=== PATIENT | female | born 1995 | race Caucasian/White ===

== ENCOUNTER 2019-01-20 13:01 | Emergency (ER) | payer SELFPAY ==
[2019-01-20 13:15] VITALS: BP 116/66
--- NOTE | 2019-01-20 14:20 | ER Document Report ---
ED Medical Screen (RME) - General Chief Complaint: Abscess Stated Complaint: ABSCESS Time Seen by Provider: 01/20/19 14:12 Mode of Arrival: Ambulatory Information source: Patient TRAVEL OUTSIDE OF THE [place] IN LAST 30 DAYS: No - HPI Patient complains to provider of: rash Context: 23 yr old female pt here for concern of a possible abscess vs skin infection vs rash to her right inguinal crease region x several days. was recently on flagyl for bv x 7d, and completed this and states area decreased in pain and size however hasn't fully gone away so she came in for more abx. 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 pt denies concerns for stds and doesn't want any further prophylactic tx or std testing. no drainage, bleeding, redness, or fever. no changes in neurologic. no recent abx or steroids. no hx of diabetes or asthma. pt able to walk. no surgeries on this area. no hx of hernias. denies . no trauma or injury. denies injecting into this area. no uti or vaginal complaints or concerns for stds and doesn't want a pelvic. no abd pain. no other complaints at this time. 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 - Past Medical History Cardiac Medical History: Reports: Other - prior hx of open heart surgery secondary the endocarditis Other: 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 and also 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 per pt Endocrine Medical History: Reports: None Renal/ Medical History: Denies: Hx Peritoneal Dialysis Past Surgical History: Reports: Hx Cardiac Surgery - open heart surgery for endocarditis and valvular veg 2* to IV drug abuse - Immunizations Immunizations up to date: Yes Hx Diphtheria, Pertussis, Tetanus Vaccination: Yes Review of Systems - Review of Systems -: Yes All other systems reviewed and negative - to include 10 systems unless mentioned in the hpi Physical Exam - Vital signs Vitals: Temp Pulse Resp BP Pulse Ox 98.3 F 65 18 116/66 98 01/20/19 13:12 01/20/19 13:12 01/20/19 13:12 01/20/19 13:12 01/20/19 13:12 Interpretation: Normal Notes: >>>> PHYSICAL_EXAM: GENERAL_APPEARANCE: well_nourished, alert, cooperative, no_acute_distress, no_obvious_discomfort. Pleasant, young female, smiling, speaking in full sentences, in no sign of pain or resp distress, easily sitting up, no one is with her VITALS: reviewed, see vital signs table. HEAD: normocephalic, atraumatic. no pineda signs. no raccoon eyes. EYES: PERRL, EOMI, (-)scleral icterus. NOSE: no_nasal_discharge. MOUTH: (-)decreased moisture. THROAT: no_tonsilar_inflammation/hypertrophy/exudate NECK: supple, no_neck_tenderness, full rom. full strength. no meningeal signs. BACK: no midline_back_tenderness. no step offs or deformities CHEST_WALL: no_chest_tenderness. LUNGS: no_wheezing, (-)accessory muscle use, good air exchange bilateral. HEART: normal_rate, normal_rhythm, ABDOMEN: normal_BS, soft, abdomen-diffuse, non-tender, (-)guarding, (- )rebound, no distension or peritoneal signs. neg murphys. neg mcburneys. no cva tenderness. PELVIC: internal exam deferred, no grossly visible external abnormality other than in the right upper medial leg/groin crease just distal to the inguinal canal there is a small 1cm area of circular erythema that appears like mild cellulitis vs a resolving abscess. area minimally ttp. no drainage, streaking, induration, fluctuation, or bleeding. not tinea or hive like. does eugene. no central clearing or target lesion. no drainable fluid collection. RECTAL: deferred EXTREMITIES: strength 5/5 in all_extremities, good pulses in all_extremities, no_edema, no_swelling\tenderness. full rom. normal gait. good hand adult neurologist. brisk cap refill. SKIN: warm, dry, good_color, no_rash. no grossly visible overlying skin changes to suggest trauma NEURO: motor_intact, sensory_intact. MENTAL_STATUS: normal_affect, speech_clear, oriented_X_3, responds_appropriately to questions. Course - Re-evaluation Re-evalutation: pt here for a likely resolving inguinal/groin infection/cellulitis. was on flagyl for bv recently and states completed a week of this and it decreased the size of the area. no drainage; however, it hasn't resolved so she came in. there is no drainable fluid collection today. she refused pelvic exam. has no concerns for stds. advised sx care. will dc with doxy. Follow-up with PCP/obgyn/health dept in 1 to 2 days. Return for any worsening symptoms. take the medication as prescribed. Tylenol or ibuprofen as needed for any pain or her methadone. Keep area clean and dry. Follow-up with health department or [facility] for further work-up of any desired STD testing. No intercourse while symptomatic. Condom use for safe sex. epson salt soaks. On reexam, pt remained stable. nontoxic. well appearing. pain controlled. tolerating po. requesting to go home. serial abd exams remain benign Documentation achieved through voice recording which my lead to some occasional accidental typographical errors. Extensive efforts have been made to proof read documentation to make sure these are the least as possible. - Vital Signs Vital signs: Temp Pulse Resp BP Pulse Ox 98.3 F 65 18 116/66 98 01/20/19 13:12 01/20/19 13:12 01/20/19 13:12 01/20/19 13:12 01/20/19 13:12 Temp Pulse Resp BP Pulse Ox 01/20/19 13:12 98.3 F 65 18 116/66 98 Doctor's Discharge - Discharge Clinical Impression: Cellulitis Qualifiers: Site of cellulitis: unspecified site Qualified Code(s): L03.90 - Cellulitis, unspecified Condition: Good Disposition: HOME, SELF-CARE Instructions: MRSA Cellulitis ([facility]) Additional Instructions: Follow-up with PCP/obgyn in 1 to 2 days. Return for any worsening symptoms. take the medication as prescribed. Tylenol or ibuprofen as needed for any pain or your methadone. Keep area clean and dry. Follow-up with health department or [facility] for further work-up of any desired STD testing. No intercourse while symptomatic. Condom use for safe sex. epson salt soaks. Prescriptions: Doxycycline Hyclate 100 mg PO BID #14 capsule
== END 2019-01-20 14:48 | disposition home or self-care (01) ==
LOC: ER 13:01
DX: L03.90 Cellulitis, unspecified (principal); F11.10 Opioid abuse, uncomplicated
CPT/HCPCS: 99282